=== PATIENT | female | born 1960 | race Two or more races ===

== ENCOUNTER 2021-04-30 06:50 | Day surgery (SDC) | payer OTHER ==
[~2021-04-30 06:50] MED LIST: HYDROCHLOROTH12.5 MG PO; SYNTHROID50 MCG PO; TENORMIN25 MG PO
[2021-04-30] MEDS ORDERED: NAPRELAN500 M1 PO (19:28)
== END 2021-05-01 01:40 | disposition home or self-care (01) ==
LOC: CIR.AMB 06:50
PROVIDERS: ATTEND Obstetrics & Gynecology
DX: D25.0 Submucous leiomyoma of uterus (principal); N84.0 Polyp of corpus uteri; Z20.822 Contact with and (suspected) exposure to COVID-19